=== PATIENT | male | born 1990 | race American Indian/Alaskan Native ===

== ENCOUNTER 2016-11-11 02:47 | Emergency (ER) | payer SELFPAY ==
[2016-11-11] MEDS ORDERED: TYLENOL ONE (02:56)
[2016-11-11] MEDS ORDERED: TYLENOL PO ONE (03:08)
[2016-11-11 03:11] VITALS: BP 116/64
== END 2016-11-11 03:10 | disposition left against medical advice (07) ==
LOC: ED 02:47
DX: K08.89 Other specified disorders of teeth and supporting structures (principal); Z53.21 Procedure and treatment not carried out due to patient leaving prior to being seen by health care provider